=== PATIENT | male | born 1940 | race African-American/Black ===

== ENCOUNTER 2017-06-09 13:59 | Emergency (ER) | payer SELFPAY ==
[2017-06-09 14:07] VITALS: BP 138/89; PULSE 96; TEMP 97.4; BMI 20.8
--- NOTE | 2017-06-09 14:14 | PDOC ---
Rapid Medical Evaluation Chief Complaint: Lightheaded Time Seen by Provider: 06/09/17 14:03 Medical Evaluation: Allergies Allergy/AdvReac Type Severity Reaction Status Date / Time No Known Allergies Allergy Verified 06/09/17 14:01 06/09/17 14:14 The patient presents with a chief complaint of: light headedness, on coumadin. Would like to establish primary care in the area I have performed a brief in-person evaluation of this patient; Pertinent physical exam findings: None I have ordered the following: CBC, CMP, PT/INR, UA, Cardiac labs, EKG The patient will proceed to the ED for further evaluation.
[2017-06-09 14:40] LABS: BASOPHIL 0.8 % (0-2.0); EOSINOPHIL 0.9 % (0-4.5); MCH 31.2 pg (25.7-33.7); MCHC 31.8 g/dl (32.0-35.9); MEAN CELL VOLUME 98.1 fl (80-96); MEAN PLT VOLUME 7.6 fl (7.5-11.1); NEUTROPHILS 74.3 % (42.8-82.8); PLATELET COUNT 261 K/MM3 (134-434); RDW 14.9 % (11.9-15.9); URINE APPEARANCE CLEAR; URINE BILIRUBIN NEGATIVE (NEGATIVE); URINE BLOOD 1+ (NEGATIVE); URINE COLOR STRAW; URINE GLUCOSE (UA) NEGATIVE (NEGATIVE); URINE KETONE NEGATIVE (NEGATIVE); URINE LEUK ESTERASE NEGATIVE (NEGATIVE); URINE NITRITE NEGATIVE (NEGATIVE); URINE UROBILINOGEN NEGATIVE mg/dL (0.2-1.0); WHITE BLOOD COUNT 7.5 K/mm3 (4.0-10.0)
[2017-06-09 14:58] LABS: INR 1.34 (0.82-1.09); PROTHROMBIN TIME (PATIENT) 15.1 SEC (9.98-11.88)
--- NOTE | 2017-06-09 15:00 | EKG ---
Test Reason : Blood Pressure : / mmHG Vent. Rate : 088 BPM Atrial Rate : 088 BPM P-R Int : 158 ms QRS Dur : 078 ms QT Int : 324 ms P-R-T Axes : 066 021 076 degrees QTc Int : 392 ms NORMAL SINUS RHYTHM MODERATE VOLTAGE CRITERIA FOR LVH, MAY BE NORMAL VARIANT BORDERLINE ECG WHEN COMPARED WITH ECG OF 03-AUG-2001 12:19, NO SIGNIFICANT CHANGE WAS FOUND Confirmed by RICHAR INGRAM, PANCHITO ([id number]) on 06/09/2017 3:00:44 PM Referred By: Confirmed By:PANCHITO MCQUEEN MD
[2017-06-09 15:04] LABS: CPK 111 IU/L (39-308)
[2017-06-09 15:05] LABS: TROPONIN I < 0.02 ng/ml (0.00-0.05); URINE PROTEIN 1+ (NEGATIVE)
[2017-06-09 15:12] LABS: ALBUMIN 3.4 g/dl (3.4-5.0); ANION GAP 7 (8-16); BILIRUBIN,TOTAL 0.5 mg/dL (0.2-1.0); CALCIUM 8.8 mg/dL (8.5-10.1); CO2 21 mmol/L (21-32); CREATININE 2.6 mg/dL (0.7-1.3); GLUCOSE,RANDOM 94 mg/dL (74-106); SGOT/AST 26 U/L (15-37); SGPT/ALT 39 U/L (12-78); TOT PROT 8.4 g/dl (6.4-8.2)
[2017-06-09 15:13] LABS: ALK PHOS 117 U/L (45-117)
[2017-06-09 15:22] LABS: URINE MUCUS RARE; URINE RBC <1 /hpf (0-3); URINE WBC <1 /hpf (3-5)
--- NOTE | 2017-06-09 15:49 | PDOC ---
History of Present Illness - General Chief Complaint: Lightheaded Stated Complaint: LIGHTHEADED Time Seen by Provider: 06/09/17 14:03 - History of Present Illness Initial Comments: 76 year old male with PMH of HTN, DVT (recently treated and placed on blood thinners), and osteomyeletis (s/p treatment) who was recently discharged from an [place] rehab facility for DVT and osteomyletis treatment then discharged to see a PCP in that area. However, he moved to [place] and hasn't been able to follow up with a PCP. He is currently on his final dose of lovenox and is still taking Coumadin as well. He is presenting for medical advice and coagulation checkup. Of note, he admits to one episode of lightheadedness yesterday when he stood up suddenly from a seated position, he also admits to dehydration and lack of significant PO fluid intake. 06/09/17 15:21 Past History - Past Medical History Allergies/Adverse Reactions: Allergies Allergy/AdvReac Type Severity Reaction Status Date / Time No Known Allergies Allergy Verified 06/09/17 14:01 Home Medications: Ambulatory Orders Enoxaparin Sodium [Lovenox] 60 mg SQ BID 2 Days #4 syringe 06/09/17 Anemia: Yes Cancer: Yes (prostate ca) COPD: No Disorders: Yes (ckd) HTN: Yes Other medical history: rt leg dvt,bph - Suicide/Smoking/Psychosocial Hx Smoking History: Never smoked Information on smoking cessation initiated: No Hx Alcohol Use: No Drug/Substance Use Hx: No *Physical Exam - Vital Signs Last Vital Signs Temp Pulse Resp BP Pulse Ox 97.4 F L 96 H 18 138/89 100 06/09/17 14:01 06/09/17 14:01 06/09/17 14:01 06/09/17 14:01 06/09/17 14:01 ED Treatment Course - LABORATORY CBC & Chemistry Diagram: 06/09/17 14:34 06/09/17 14:34 - ADDITIONAL ORDERS Additional order review: Laboratory Results 06/09/17 06/09/17 06/09/17 14:34 14:34 14:34 PT with INR INR Sodium 140 Potassium 4.8 Chloride 112 H Carbon Dioxide 21 Anion Gap 7 L BUN 47 H Creatinine 2.6 H Creat Clearance w eGFR 24.18 Random Glucose 94 Calcium 8.8 Total Bilirubin 0.5 AST 26 ALT 39 Alkaline Phosphatase 117 Creatine Kinase 111 Troponin I < 0.02 Total Protein 8.4 H Albumin 3.4 Urine Color Straw Urine Appearance Clear Urine pH 5.0 Ur Specific [place] 1.013 Urine Protein 1+ H Urine Glucose (UA) Negative Urine Ketones Negative Urine Blood 1+ H Urine Nitrite Negative Urine Bilirubin Negative Urine Urobilinogen Negative 06/09/17 14:34 PT with INR 15.10 H INR 1.34 H Sodium Potassium Chloride Carbon Dioxide Anion Gap BUN Creatinine Creat Clearance w eGFR Random Glucose Calcium Total Bilirubin AST ALT Alkaline Phosphatase Creatine Kinase Troponin I Total Protein Albumin Urine Color Urine Appearance Urine pH Ur Specific [place] Urine Protein Urine Glucose (UA) Urine Ketones Urine Blood Urine Nitrite Urine Bilirubin Urine Urobilinogen 06/09/17 14:34 RBC 3.75 L MCV 98.1 H MCHC 31.8 L RDW 14.9 MPV 7.6 Neutrophils % 74.3 Lymphocytes % 17.3 Monocytes % 6.7 Eosinophils % 0.9 Basophils % 0.8 *DC/Admit/Observation/Transfer Diagnosis at time of Disposition: Subtherapeutic anticoagulation - Discharge Dispostion Disposition: HOME Condition at time of disposition: Stable Admit: No - Prescriptions Prescriptions: Enoxaparin Sodium [Lovenox] 60 mg SQ BID 2 Days #4 syringe - Referrals Referrals: Johnson Whitaker MD [Staff Physician] - - Patient Instructions Printed Discharge Instructions: Enoxaparin Injection Additional Instructions: Please follow up with the primary clinic tomorrow at [address] [facility] phone number [phone]. It is very important that you get your medications managed by a primary medical doctor because your blood was not thin enough. We presecribed you two more dyas of Lovenox to hopefully get you to the correct level. Please return if you have any sudden bleeding or have difficulty walking or speaking. - Post Discharge Activity
--- NOTE | 2017-06-09 16:31 | PDOC ---
Attending Attestation - HPI HPI: 06/09/17 16:41 Patient is a 77 year old male with a significant past medical history of HTN, DVT (recently treated and placed on blood thinners), and osteomyelitis (s/p treatment) who presents to the ED for evaluation after recent medical center discharge. Patient reports being discharged from [place] rehabilitation center for DVT in right leg and osteomyelitis. He reports rehab center was going to set him up with PCP for follow up in [place] before he moved to [place]. Patient reports experiencing an episode of lightheadedness yesterday afternoon prompting him to come to the ED for further evaluation and follow up. Denies nausea, vomiting. Denies fever, chills. Denies contact with sick individuals, out of state travel. Denies any other symptoms. Allergies: None Social history: No smoking. No alcohol. No illicit drugs. Surgical history: Right leg surgery (unspecified). PMD: None - Physicial Exam PE: 06/09/17 16:41 Vitals: Triage Vital signs reviewed General Appearance: no acute distress, well nourished well developed Head: Atraumatic Chest Wall: Nontender Cardiac: Regular rate and rhythm, no murmurs, no rubs, no gallops Lungs: Clear to auscultation bilateral, good air movement bilaterally Abdomen: Soft, non distended, normal bowel sounds, non tender to palpation Genitourinary: Rectal: Exam deferred Extremities: +Right leg Edema. Full range of motion to all extremities, no cyanosis, clubbing, Skin: Warm and dry, no rashes or lesions, no rash, no petechiae Neuro: AOX3; Cranial Nerves 2-12 grossly intact, Strength intact to all extremities, Sensation intact to all extremities, gait normal Psych: Normal mood, normal affect - Medical Decision Making 06/09/17 16:41 Documentation prepared by Diaz Ibanez, acting as medical coding auditor for Braeden Birch MD, MD/DO. <Diaz Ibanez - Last Filed: 06/09/17 16:41> - Resident Resident Name: Sabra Hastings - ED Attending Attestation I have performed the following: I have examined & evaluated the patient, The case was reviewed & discussed with the resident, I agree w/resident's findings & plan, Exceptions are as noted - Medical Decision Making Patient recently diagnosed with DVT in [place] did not follow up in [place] presents to our emergency department to have his INR level checked Here in the emergency department his INR was subtherapeutic. He received Lovenox. Prescription for 2 days of Lovenox and an appointment in our clinic to have INR rechecked tomorrow Findings, the need for follow-up, strict return instructions discussed with patient and grandson. <Braeden Birch - Last Filed: 06/09/17 17:07>
[2017-06-09 21:13] LABS: URINE LEUK ESTERASE NEGATIVE (NEGATIVE)
== END 2017-06-09 16:09 | disposition home or self-care (01) ==
LOC: JER 13:59
DX: D68.9 Coagulation defect, unspecified (principal)
CPT/HCPCS: 36415; 71010-TC; 80053; 81003; 81015; 82550; 84484; 85025; 85610; 93005; 93010; 99281-25